=== PATIENT | male | born 1990 | race Caucasian/White ===

== ENCOUNTER 2018-11-25 13:36 | Emergency (ER) | payer OTHER ==
[~2018-11-25] VITALS: Ht 170.2 cm; Wt 67.0 kg
[2018-11-25 14:05] VITALS: BP 155/85
[2018-11-25] MEDS ORDERED: HYDROcodone/acetaminophen 10/325mg tab PO ONE (15:15)
[2018-11-25] MEDS ORDERED: CEPH-572 PO (15:20)
[2018-11-25] MEDS ORDERED: HYDR-3965 PO (15:20)
== END 2018-11-25 16:06 | disposition home or self-care (01) ==
LOC: ER 13:36
DX: S62.393A Other fracture of third metacarpal bone, left hand, initial encounter for closed fracture (principal); F17.200 Nicotine dependence, unspecified, uncomplicated; W23.0XXA Caught, crushed, jammed, or pinched between moving objects, initial encounter; Y93.89 Activity, other specified; Y92.89 Other specified places as the place of occurrence of the external cause; Y99.9 Unspecified external cause status
CPT/HCPCS: 29125; 73130; 99283